=== PATIENT | female | born 1965 | race Native Hawaiian/Other Pacific Islander ===

== ENCOUNTER 2018-08-31 08:23 | Outpatient (CLI) | payer BC | END 2018-08-31 19:13 | disposition home or self-care (01) | LOC: MAMMO 08:23 | DX: Z12.31 Encounter for screening mammogram for malignant neoplasm of breast (principal) ==

== ENCOUNTER 2021-02-21 09:19 | Outpatient (CLI) | payer BC | END 2021-02-21 22:36 | disposition home or self-care (01) | LOC: MAMMO 09:19 | PROVIDERS: ATTEND Specialist | DX: Z12.31 Encounter for screening mammogram for malignant neoplasm of breast (principal) ==

== ENCOUNTER 2021-11-19 13:19 | Outpatient (CLI) | payer BC | END 2021-11-19 19:21 | disposition home or self-care (01) | LOC: RAD 13:19 | PROVIDERS: ATTEND Internal Medicine | DX: Z13.820 Encounter for screening for osteoporosis (principal); N95.8 Other specified menopausal and perimenopausal disorders ==

== ENCOUNTER 2023-04-27 08:20 | Outpatient (CLI) | payer BC | END 2023-04-27 19:49 | disposition home or self-care (01) | LOC: MAMMO 08:20 | PROVIDERS: ATTEND Specialist | DX: Z12.31 Encounter for screening mammogram for malignant neoplasm of breast (principal) ==